=== PATIENT | female | born 1985 | race Two or more races ===

== ENCOUNTER 2021-02-08 16:43 | Emergency (ER) | payer MEDICAID, OTHER ==
[~2021-02-08] VITALS: Ht 152.4 cm; Wt 81.6 kg
[2021-02-08] MEDS ORDERED: KETOROLAC TROMETH 60MG/2ML VIAL IM ONE (19:45)
[2021-02-08 20:15] VITALS: BP 154/86
== END 2021-02-09 06:03 | disposition home or self-care (01) ==
LOC: ER 16:43
DX: S33.5XXA Sprain of ligaments of lumbar spine, initial encounter (principal); S63.8X2A Sprain of other part of left wrist and hand, initial encounter; M62.838 Other muscle spasm; E66.9 Obesity, unspecified; Z68.35 Body mass index [BMI] 35.0-35.9, adult; V49.49XA Driver injured in collision with other motor vehicles in traffic accident, initial encounter; Y93.89 Activity, other specified; Y92.488 Other paved roadways as the place of occurrence of the external cause; Y99.8 Other external cause status
CPT/HCPCS: 72040; 72100; 73130; 96372; 99284; J1885

== ENCOUNTER 2025-01-30 08:00 | Emergency (ER) | payer MEDICAID ==
[~2025-01-30] VITALS: Ht 154.9 cm; Wt 87.8 kg
[2025-01-30] MEDS: KETOROLAC TROMETH 60MG/2ML VIAL IM ONE (08:46)
[2025-01-30 08:48] VITALS: BP 130/89; PULSE 78; RESP 17; TEMP 98.3; O2SAT 98
--- NOTE | 2025-01-30 08:49 | ED.PDOC ---
History of Present Illness HPI Comments Ms. Castro is a 39-year-old female with no prior medical history, who presents today with chief complaint of anterior chest wall pain. The patient states she was in the bathroom this morning when she turned towards her right and felt a minor pull in her anterior chest. She refers that once she turned back she had onset of sharp anterior chest wall pain, non-radiating, 10/10 intensity when she turns, that is aggravated by turning her trunk towards the right and with abduction of the right arm, relieved by not partaking in the aforementioned motions. She denies nausea, vomiting, fever, nasal congestion or discharge, cough, shortness of breath, palpitations, pressure-like pain, pain in her left arm, numbness, and weakness. Due to persistence of symptoms, she presents for evaluation in the ED. On initial eval, the patient seems well, mildly tachycardic and hypertensive, other vitals are stable, she is ambulating without difficulty, and with no overt signs of distress. Chief Complaint: Chest Wall Injury Time Seen by MD: 08:04 Primary Care Provider: UNKNOWN Allergies: Coded Allergies: NO KNOWN ALLERGIES (Unverified , 02/08/21) Information Source: Patient Mode of Arrival: Ambulatory Severity: None Timing: Hours Duration: Since onset Past Medical History PAST MEDICAL HISTORY: Denies Surgical History: SCHOOL PHYSICAL THERAPIST History: No Pertinent SCHOOL PHYSICAL THERAPIST History Family History Family History: Reviewed,noncontributory to illness, No family hx of Cancer, No family hx of DM, No family hx of Heart jd, No family hx of HTN, No family hx ofKidney jd, No family hx of Liver jd, No family hx of Lung jd, No family hx of Stroke Social History Smoker: Non-Smoker Alcohol: Denies ETOH Use Drugs: Denies Drug Use Lives In: Home Constitutional: denies: chills, diaphoresis, fatigue, fever, malaise, sweats, weakness EENTM: denies: blurred vision, double vision, ear bleeding, ear discharge, hearing loss, mouth pain, nasal discharge, nose bleeding, nose congestion, nose pain, throat pain Respiratory: reports: SOB at rest; denies: cough, hemoptysis, orthopnea, shortness of breath Cardiovascular: reports: chest pain; denies: dizzy spells, diaphoresis, Dyspnea on exertion, edema, irregular heart beat, left arm pain, lightheadedness, palpitations Gastrointestinal: denies: abdomen distended, abdominal pain, constipated, diarrhea, dysphagia, difficulty swallowing, hematemesis, melena, nausea, poor appetite, poor fluid intake Genitourinary: denies: burning, dysuria, flank pain, frequency, hematuria, incontinence, pain, urgency Neurological: denies: dizziness, fainting, headache, numbness, paresthesia, seizure, speech problems, tingling, weakness Musculoskeletal: reports: muscle pain, muscle stiffness; denies: back pain, joint pain, joint swelling, neck pain Integumetry: denies: bruises, laceration, lesions, lumps, rash, wounds Physical Exam General Appearance: Normal, Obese HEENT: Normal ENT Inspection, PERRL/EOMI, Pharynx Normal Neck: Full Range of Motion, Non-Tender, Normal Inspection Respiratory: Lungs Clear, No Accessory Muscle Use, No Respiratory Distress, Normal Breath Sounds, Other (Tenderness on palpation of anterior chest wall, tenderness with passive and active abduction of the right arm ) Cardiovascular: No Edema, No Murmur, Normal Peripheral Pulses, Regular Rate/Rhythm Breast Exam: Deferred Gastrointestinal: Non Tender, Normal Bowel Sounds, Soft Genitalia: Deferred Pelvic: Deferred Rectal: Deferred Extremities: Normal capillary refill, Normal inspection, Normal range of motion, Non-tender, No pedal edema Neurologic: Alert, Normal Affect, Normal Mood Cerebellar Function: Normal Reflexes: NOT DONE Skin: Normal Color Peripheral Pulses: 4+ dorsalis pedis (R), 4+ dorsalis pedis (L) Lymphatic: Other (No cervical adenopathy ) Was a procedure done? Was a procedure done?: No Differential Dx Considerations may include: Muscle strain, abrasion, contusion, pleuritic chest pain, ACS, MA, GERD X-Ray, Labs, Meds, VS Vital Signs Date Time Temp Pulse Resp B/P (MAP) Pulse Ox O2 Delivery O2 Flow Rate FiO2 01/30/25 08:48 78 01/30/25 08:48 98.3 78 17 130/89 (103) 98 98.3 01/30/25 08:02 97.8 109 18 161/102 99 97.8 Current Medications Medications (Trade) Dose Ordered Sig/Jackeline Route Start Time Stop Time Status Last Admin Ketorolac Tromethamine (Toradol Injection) 30 mg ONCE ONCE IM 10/30/25 08:30 01/30/25 08:31 DC 01/30/25 08:46 Time of 1ST Reevaluation: 09:02 Reevaluation 1ST: Improved Patient Education/Counseling: Diagnosis, Treatment Family Education/Counseling: No Family Present Comments The patient presents today with chief complaint of chest wall pain On initial evaluation, the patient seems well, hypertensive, ambulating without difficulty, with no overt signs of distress On examination, pain is reproducible with palpation of anterior chest wall and with passive and active abduction of the right arm Patient was given 1 dose of Toradol 30 mg IM On re-evaluation, the patient was better, vitals have improved The patient is considered stable for discharge home SEPSIS Sepsis Screen Date sepsis recognized/suspect: Jan 30, 2025 Time Sepsis recognized/suspect: 803 Recent Procedure: No On Antibiotic Therapy: No Respiratory Rate >20: No Heart Rate >90: Yes Temp<36 C (96.8 F) or >38.3 C: No SBP <90 or MAP <65 mmHG: No New Acute Mental Status Change: No Is the patient on CPAP, BIPAP,: No Vital Signs Date Time Temp Pulse Resp B/P (MAP) Pulse Ox O2 Delivery O2 Flow Rate FiO2 01/30/25 08:48 78 01/30/25 08:48 98.3 78 17 130/89 (103) 98 98.3 01/30/25 08:02 97.8 109 18 161/102 99 97.8 Medications Medications Dose Ordered Sig/Jackeline Route Start Time Stop Time Status Last Admin Dose Admin Ketorolac Tromethamine 30 mg ONCE ONCE IM 01/30/25 08:30 01/30/25 08:31 DC 01/30/25 08:46 Departure 1 Departure Time of Disposition: 09:18 Impression: Primary Impression: Musculoskeletal chest pain Disposition: 01 HOME / SELF CARE / HOMELESS Condition: Stable Additional Instructions: You presented today with chief complaint of anterior chest wall pain On evaluation, your pain was reproducible on palpation and with movement of your right arm Your pain is likely due to muscle strain You were given 1 dose of Toradol (NSAID) You are considered stable for discharge home with recommendations use of NSAIDs (ibuprofen) as needed We recommend follow up with your PCP within 1 week AP symptoms were to persist, worsen, or should you have any further concerns please return to the emergency department Discharged With: Self Critical Care Note Critical Care Time?: No Stability Stability form required: MITCHELL Tarango RESIDENT Jan 30, 2025 08:49
== END 2025-01-30 09:09 | disposition home or self-care (01) ==
LOC: ER 08:00
DX: R07.89 Other chest pain (principal); Z79.899 Other long term (current) drug therapy
CPT/HCPCS: 96372; 99283; J1885